=== PATIENT | female | born 1975 | race Caucasian/White ===

== ENCOUNTER 2016-10-16 11:38 | Emergency (ER) | payer OTHER ==
[~2016-10-16] VITALS: Ht 152.4 cm; Wt 110.7 kg
[2016-10-16 11:45] VITALS: TEMP 36.9; Ht 152.4 cm; Wt 110.7 kg
[2016-10-16] MEDS ORDERED: KETOROLAC TROMETHAMINE 30 MG/ML VIAL IV STA (11:57)
[2016-10-16] MEDS ORDERED: SODIUM CHLORIDE 0.9% 1000ML 1,000 ML IV STA (11:57)
[2016-10-16] MEDS ORDERED: ONDANSETRON INJ 2 MG/ML 2 ML VIAL IV STA (11:57)
[2016-10-16] MEDS ORDERED: SODIUM CHLORIDE 0.9% 1000ML 500 ML IV STA (11:57)
[2016-10-16] MEDS ORDERED: MoRPHine SULFATE 4 MG/ML 1 ML CARP\\VIAL IV PRN (12:00)
--- NOTE | 2016-10-16 12:01 | EMERGENCY ROOM VISIT NOTE ---
History Report prepared by Yovana: Roman Herrera Under the Supervision of: Dr. Huy Mancera M.D. First contact with patient: 11:50 Chief Complaint: ABDOMINAL PAIN Stated Complaint: SEVERE ABD. PAIN GOES INTO BACK History of Present Illness The patient is a 40 year old female who presents to the Emergency Room with complaints of persistent abdominal pain beginning 2 to 3 days ago. She notes the pain is worse on her left side than right, rates it a 9/10 in severity, and reports that bending or stretching worsens her pain. She has not eaten much since the onset of her symptoms. The patient notes having some nausea, diarrhea , and increased urination, but denies any vomiting or constipation. She also denies any fever though notes she was hot and sweaty yesterday at work. She has had a cough and notes she had a cold last week. The patient reports having similar pain before in the past and that it was determined to be gas. She admits to a history of diabetes, and has had a cholecystectomy. She denies having any known drug allergies. Source of History: patient Onset: 2 to 3 days ago Position: abdomen Symptom Intensity: 9/10 in severity Quality: other (abdominal pain) Timing: other (persistent) Modifying Factors (Worsening): stretching, other (bending ) Associated Symptoms: + cough, + diarrhea, + nausea, + urinary symptoms ( increased urination), No fevers, No vomiting Note: The patient denies any constipation. Review of Systems See HPI for pertinent positives & negatives. A total of 10 systems reviewed and were otherwise negative. Past Medical & Surgical Medical Problems: (1) History of diabetes mellitus Surgical Problems: (1) History of cholecystectomy Family History No pertinent family history stated. Social History Smoking Status: Never Smoker Current/Historical Medications Scheduled Acetaminophen (Tylenol), 1,000 MG PO Q6 Amlodipine Besylate (Amlodipine Besylate), 5 MG PO QAM Levothyroxine Sodium (Synthroid), 25 MCG PO QAM Levothyroxine Sodium (Synthroid), 200 MCG PO QAM Losartan Potassium & Hydrochlo (Losartan Potassium/Hydroc), 1 TAB PO DAILY Metformin Hcl (Glucophage), 1,000 MG PO BID Omeprazole (Prilosec), 10 MG PO QAM Ondasetron Odt (Zofran Odt), 4-8 MG SL Q6H Pregabalin (Lyrica), 150 MG PO TID Scheduled PRN Naproxen (Aleve), 440 MG PO DIRECTED PRN for Pain Oxycodone Ir (Roxicodone Ir), 1 TAB PO Q4H PRN for Pain Allergies Coded Allergies: No Known Allergies (Unverified , 10/16/16) Physical Exam Vital Signs Date Time Temp Pulse Resp B/P Pulse Ox O2 Delivery O2 Flow Rate FiO2 10/16/16 16:31 78 20 122/78 97 10/16/16 15:43 96 20 109/80 96 Room Air 10/16/16 14:32 92 18 91/59 96 Room Air 10/16/16 12:58 99 18 103/63 96 Room Air 10/16/16 11:45 36.9 117 18 144/84 95 Room Air Physical Exam GENERAL: Patient is in no acute distress. HEENT: No acute trauma, normocephalic atraumatic, mucous membranes moist, no nasal congestion, no scleral icterus. NECK: No stridor, no adenopathy, no meningismus, trachea is midline. LUNGS: Decreased breath sounds bilaterally; no wheezing or rhonchi; breath sounds are equal. HEART: Mildly tachycardic with a regular rhythm; no murmurs. ABDOMEN: Soft; tenderness primarily in the left upper quadrant; bowel sounds positive, no hernias, no peritonitis. EXTREMITIES: No cyanosis or edema, full range of motion of all the joints without pain or difficulty, no signs for acute trauma. NEUROLOGIC: Oriented x 3, no acute motor or sensory deficits, no focal weakness. SKIN: No rash, no jaundice, no diaphoresis. Medical Decision & Procedures ER Provider Diagnostic Interpretation: X ray results and stated below per my interpretation and radiologist interpretation. Other radiology results and stated below per my review and radiologist interpretation: CHEST ONE VIEW PORTABLE FINDINGS: The bones soft tissues and hemidiaphragms are normal. The cardiomediastinal silhouette is normal. The lungs are clear. The pulmonary vasculature is normal. IMPRESSION: Negative chest. Electronically signed by: Feliberto Graham M.D. 10/16/2016 12:44 PM Dictated Date/Time: 10/16/2016 12:44 PM ABDOMEN AND PELVIS CT WITH ORAL CONTRAST FINDINGS: Lung bases are clear prior cholecystectomy. Liver spleen and pancreas are unremarkable. Kidneys negative for calcification or hydronephrosis. Bowel pattern is nonobstructive. The appendix is normal. Bladder is midline. No free fluid within the pelvic cul-de-sac. Minimal nonobstructive small bowel ileus. IMPRESSION: 1. Minimal nonobstructive ileus. 2. Otherwise negative study abdomen and pelvis. 3. Prior cholecystectomy. Electronically signed by: Feliberto Graham M.D. 10/16/2016 2:58 PM Dictated Date/Time: 10/16/2016 2:55 PM Laboratory Results 10/16/16 12:00 Red Blood Count 4.37, Mean Corpuscular Volume 77.8, Mean Corpuscular Hemoglobin 25.6, Mean Corpuscular Hemoglobin Concent 32.9, Mean Platelet Volume 9.5, Neutrophils (%) (Auto) 64.5, Lymphocytes (%) (Auto) 28.4, Monocytes (%) (Auto) 5.7, Eosinophils (%) (Auto) 1.0, Basophils (%) (Auto) 0.1, Neutrophils # (Auto) 6.92, Lymphocytes # (Auto) 3.04, Monocytes # (Auto) 0.61, Eosinophils # (Auto) 0.11, Basophils # (Auto) 0.01 10/16/16 12:00 Test 10/16/16 12:00 10/16/16 12:30 White Blood Count 10.72 K/uL (4.8-10.8) Red Blood Count 4.37 M/uL (4.2-5.4) Hemoglobin 11.2 g/dL (12.0-16.0) Hematocrit 34.0 % (37-47) Mean Corpuscular Volume 77.8 fL (80-100) Mean Corpuscular Hemoglobin 25.6 pg (25-34) Mean Corpuscular Hemoglobin Concent 32.9 g/dl (32-36) Platelet Count 397 K/uL (130-400) Mean Platelet Volume 9.5 fL (7.4-10.4) Neutrophils (%) (Auto) 64.5 % Lymphocytes (%) (Auto) 28.4 % Monocytes (%) (Auto) 5.7 % Eosinophils (%) (Auto) 1.0 % Basophils (%) (Auto) 0.1 % Neutrophils # (Auto) 6.92 K/uL (1.4-6.5) Lymphocytes # (Auto) 3.04 K/uL (1.2-3.4) Monocytes # (Auto) 0.61 K/uL (0.11-0.59) Eosinophils # (Auto) 0.11 K/uL (0-0.5) Basophils # (Auto) 0.01 K/uL (0-0.2) RDW Standard Deviation 44.0 fL (36.4-46.3) RDW Coefficient of Variation 15.5 % (11.5-14.5) Immature Granulocyte % (Auto) 0.3 % Immature Granulocyte # (Auto) 0.03 K/uL (0.00-0.02) Anion Gap 10.0 mmol/L (3-11) Est Creatinine Clear Calc Drug Dose 52.8 ml/min Estimated GFR () 46.2 Estimated GFR (Non- 39.9 BUN/Creatinine Ratio 13.6 (10-20) Lactic Acid Level 1.7 mmol/L (0.4-2.0) Calcium Level 8.1 mg/dl (8.5-10.1) Total Bilirubin 0.4 mg/dl (0.2-1) Aspartate Amino Transf (AST/SGOT) 110 U/L (15-37) Alanine Aminotransferase (ALT/SGPT) 115 U/L (12-78) Alkaline Phosphatase 184 U/L (45-117) Total Protein 7.9 gm/dl (6.4-8.2) Albumin 3.4 gm/dl (3.4-5.0) Globulin 4.5 gm/dl (2.5-4.0) Albumin/Globulin Ratio 0.8 (0.9-2) Lipase 61 U/L (73-393) Human Chorionic Gonadotropin, Qual NEG (NEG) Urine Color YELLOW Urine Appearance CLEAR (CLEAR) Urine pH 5.0 (4.5-7.5) Urine Specific [place] 1.003 (1.000-1.030) Urine Protein NEG (NEG) Urine Glucose (UA) NEG (NEG) Urine Ketones NEG (NEG) Urine Occult Blood NEG (NEG) Urine Nitrite NEG (NEG) Urine Bilirubin NEG (NEG) Urine Urobilinogen NEG (NEG) Urine Leukocyte Esterase NEG (NEG) Laboratory results reviewed by me. Medications Administered Medications (Trade) Dose Ordered Sig/Kalyn Route Start Time Stop Time Status Last Admin Dose Admin Sodium Chloride (Nss 1000ml) 500 ml @ 999 mls/hr Q31M STAT IV 10/16/16 11:57 10/16/16 12:27 DC 10/16/16 11:57 999 MLS/HR Ondansetron HCl 4 mg 4 mg NOW STAT IV 10/16/16 11:57 10/16/16 11:59 DC 10/16/16 12:10 4 MG Sodium Chloride (Nss 1000ml) 1,000 ml @ 200 mls/hr Q5H STAT IV 10/16/16 11:57 10/16/16 16:47 DC 10/16/16 11:57 200 MLS/HR Morphine Sulfate (MoRPHine SULFATE INJ) 4 mg Q30M PRN IV 10/16/16 12:00 10/16/16 16:47 DC 10/16/16 12:11 4 MG Ketorolac Tromethamine (Toradol Inj) 30 mg NOW STAT IV 10/16/16 11:57 10/16/16 11:59 DC 10/16/16 11:57 30 MG ED Course 1152: The patient was evaluated in room B7. A complete history and physical exam was performed. 1157: Ordered Toradol Inj 30 mg IV, NSS 1,000 ml @ 200 mls/hr IV, Zofran Inj 4 mg IV, and NSS 500 ml @ 999 mls/hr IV. 1200: Ordered Morphine Sulfate 4 mg IV. 1510: I updated the patient. 1525: Reevaluated the patient. Discussed results and discharge instructions: She verbalized understanding and agreement. The patient is ready for discharge. Medical Decision Differentials include diverticulitis, gastritis, electrolyte imbalance, anemia, UTI, , bowel obstruction or perforation, pneumonia, kidney infection, and hernia. There is no leukocytosis or worrisome anemia. Some mild renal insufficiency/ dehydration was noted by her renal panel testing. A very mild hepatitis was present, likely consistent with her history of cholecystectomy. There was no pancreatitis. Urinalysis did not show hematuria or infection. Abdominal and pelvis CT does not show diverticulitis or bowel obstruction. There was an ileus suggested by CT scan. Lactic acid level is not elevated making bowel ischemia less likely. testing is negative. Patient received IV Toradol, IV Zofran, IV morphine and IV saline, she is more comfortable. Certainly, the findings of an ileus explains her presentation. She is being discharged with a bland diet, bowel rest. The patient is going to use oxycodone for severe pain, Zofran for nausea. She was encouraged to return to this ER for fever, worsening pain or vomiting. She will see her doctor for a recheck this week. [place] Drug Monitoring Program Search Results: patient reviewed within database, no issues identified Impression Primary Impression: Ileus Additional Impression: Left sided abdominal pain Scribe Attestation The scribe's documentation has been prepared under my direction and personally reviewed by me in its entirety. I confirm that the note above accurately reflects all work, treatment, procedures, and medical decision making performed by me. Departure Information Dispostion Home / Self-Care Prescriptions Ondasetron Odt (ZOFRAN ODT) 4 Mg Tab 4-8 MG SL Q6H for Nausea, #12 TAB Prov: Huy Mancera M.D. 10/16/16 Oxycodone Ir (Roxicodone Ir) 5 Mg Tab 1 TAB PO Q4H Y for Pain, #10 TAB Prov: Huy Mancera M.D. 10/16/16 Referrals No Doctor, Assigned (PCP) Patient Instructions [facility] Additional Instructions bland diet---crackers, soup, toast, fluids rest oxy ir 1 tab every 4 hours for pain as needed zofran 1-2 tab every 6 hours for nausea see tomasz fisher for a recheck this week return for fever, worsening pain, or vomiting lab testing and imaging was ok today Problem Qualifiers
[2016-10-16] MEDS ORDERED: METF-384 PO (12:05)
[2016-10-16] MEDS ORDERED: PREG1CAP70 PO (12:05)
[2016-10-16] MEDS ORDERED: NRV/5 PO (12:05)
[2016-10-16] MEDS ORDERED: LOSA100T26 PO (12:05)
[2016-10-16] MEDS ORDERED: PRLSR20 PO (12:05)
[2016-10-16] MEDS ORDERED: SYN25 PO (12:05)
[2016-10-16] MEDS ORDERED: SYN200 PO (12:05)
[2016-10-16] MEDS ORDERED: ACET-1256 PO (12:06)
[2016-10-16] MEDS ORDERED: NAPR1TAB9 PO (12:06)
[2016-10-16] MEDS ORDERED: OPTIRAY 320 IV PRN (12:15)
[2016-10-16 12:21] LABS: BASO % 0.1 %; BASO ABS # 0.01 K/uL (0-0.2); COMPLETE YES; IG% 0.3 %; LYMPH % 28.4 %; LYMPH ABS # 3.04 K/uL (1.2-3.4); MEAN CELL VOLUME 77.8 fL (80-100); MEAN CORPUSCULAR HEMOGLOBIN 25.6 pg (25-34); MEAN CORPUSCULAR HGB CONC 32.9 g/dl (32-36); MEAN PLATELET VOLUME 9.5 fL (7.4-10.4); MONO % 5.7 %; NEUT % 64.5 %; PLATELET COUNT 397 K/uL (130-400); RED BLOOD COUNT 4.37 M/uL (4.2-5.4); WHITE BLOOD COUNT 10.72 K/uL (4.8-10.8)
[2016-10-16 12:40] LABS: CREATININE 1.6 mg/dl (0.60-1.20)
[2016-10-16 12:41] LABS: BUN/CREATININE RATIO 13.6 (10-20); CALCIUM 8.1 mg/dl (8.5-10.1)
[2016-10-16 12:41] LABS: URINE APPEARANCE CLEAR (CLEAR); URINE BILIRUBIN NEG (NEG); URINE COLOR YELLOW; URINE NITRITE NEG (NEG); URINE SPECIFIC GRAVITY 1.003 (1.000-1.030); UROBILINOGEN NEG (NEG); ZZUR CULT IF INDIC CLEAN CATCH NO
[2016-10-16 12:43] LABS: ALB/GLOB RATIO 0.8 (0.9-2)
--- NOTE | 2016-10-16 12:45 | DIAGNOSTIC IMAGING REPORT ---
CHEST ONE VIEW PORTABLE CLINICAL HISTORY: ABDOMINAL PAIN/GI pain COMPARISON STUDY: No previous studies for comparison. FINDINGS: The bones soft tissues and hemidiaphragms are normal. The cardiomediastinal silhouette is normal. The lungs are clear. The pulmonary vasculature is normal. IMPRESSION: Negative chest. Electronically signed by: Feliberto Graham M.D. 10/16/2016 12:44 PM Dictated Date/Time: 10/16/2016 12:44 PM
[2016-10-16 12:46] LABS: MANUAL MICROSCOPIC REQUIRED? NO; REVIEW REQ? NO
[2016-10-16 12:53] LABS: PREG INTERNAL NEGATIVE QC NEG CLEAR BACKGROUND; PREG INTERNAL POSITIVE QC POS CONTROL LINE
--- NOTE | 2016-10-16 14:59 | DIAGNOSTIC IMAGING REPORT ---
ABDOMEN AND PELVIS CT WITH ORAL CONTRAST CT DOSE: 1664.45 mGy.cm HISTORY: Pain ABD PAIN, POSSIBLE DIVERTICULITIS TECHNIQUE: Multiaxial CT images of the abdomen and pelvis were performed following the use of oral contrast. COMPARISON STUDY: None. FINDINGS: Lung bases are clear prior cholecystectomy. Liver spleen and pancreas are unremarkable. Kidneys negative for calcification or hydronephrosis. Bowel pattern is nonobstructive. The appendix is normal. Bladder is midline. No free fluid within the pelvic cul-de-sac. Minimal nonobstructive small bowel ileus. IMPRESSION: 1. Minimal nonobstructive ileus. 2. Otherwise negative study abdomen and pelvis. 3. Prior cholecystectomy. Electronically signed by: Feliberto Graham M.D. 10/16/2016 2:58 PM Dictated Date/Time: 10/16/2016 2:55 PM
[2016-10-16] MEDS ORDERED: ONDA4TAB10 SL (15:23)
[2016-10-16] MEDS ORDERED: OXYC1TAB3 PO (15:23)
[2016-10-16 16:31] VITALS: BP 122/78; PULSE 78; O2SAT 97
== END 2016-10-16 16:34 | disposition home or self-care (01) ==
LOC: C.EDB 11:41
DX: K56.7 Ileus, unspecified (principal); R11.0 Nausea; R19.7 Diarrhea, unspecified; R05 Cough; E11.9 Type 2 diabetes mellitus without complications; Z79.899 Other long term (current) drug therapy